=== PATIENT | male | born 1995 | race Two or more races ===

== ENCOUNTER 2022-07-10 08:03 | Day surgery (SDC) | payer MEDICAID ==
[2022-07-06 13:29] LABS: Basophils # (auto) 0.1 10 ^3/uL (0-0.2); Basophils % (auto) 0.7 % (0.0-2.0); Eosinophils # (auto) 0.3 10 ^3/uL (0-0.8); Eosinophils % (auto) 3.3 % (0.0-7.0); Hematocrit 48.9 % (41.0-53.0); Hemoglobin 16.6 g/dL (13.5-17.5); Lymphocytes # (auto) 3.5 10 ^3/uL (0.4-5.4); Mean Corpuscular Hgb Conc. 33.9 g/dL (32.0-36.0); Mean Corpuscular Volume 88.6 fL (80.0-100.0); Monocytes # (auto) 0.5 10 ^3/uL (0-1.3); Monocytes % (auto) 5.3 % (0.0-12.0); Neutrophils # (auto) 5.1 10 ^3/uL (1.6-8.6); Neutrophils % (auto) 53.7 % (37.0-80.0); Nucleated Red Blood Cells % 0.1 %; Red Blood Cells 5.52 10^6/uL (4.5-5.90); Red Cell Distribution Width 13.8 % (11.8-14.3); Urine Bacteria NONE SEEN /hpf (None Seen); Urine Blood Negative /uL (Negative); Urine Specific Gravity 1.021 (1.001-1.035); Urine WBC 1 /hpf (0 - 3); White Blood Cell 9.4 10^3/uL (4.4-10.8)
[2022-07-06 13:33] LABS: Albumin 3.9 g/dL (3.4-5.0); Calcium 8.8 mg/dL (8.5-10.1)
[2022-07-06 13:36] LABS: BUN/Creatinine Ratio 9.7; Bilirubin, Total 0.3 mg/dL (0.2-1.0); Total Protein 7.7 g/dL (6.4-8.2)
[2022-07-06 13:43] LABS: INR 0.97 (0.9-1.15); Partial Thromboplastin Time 30.5 sec (24.6-33.4)
[~2022-07-10] VITALS: Ht 172.7 cm; Wt 115.7 kg
[2022-07-10] MEDS ORDERED: LIDOCAINE 2%HCL (LOCAL ANESTH.) INJ 10ml MDV ONE (09:41)
[2022-07-10] MEDS ORDERED: BUPIVACAINE 0.5% P/F INJ 10 ML VIAL ONE (09:41)
[2022-07-10] MEDS ORDERED: MIDAZOLAM HCL 2MG/2ML 2ml VIAL (1mg/ml) ONE (10:11)
[2022-07-10] MEDS ORDERED: fentaNYL CITRATE 100 MCG/2 ML VL ONE (10:11)
[2022-07-10] MEDS ORDERED: HYDROmorphone HCL 2 MG/ML VL/or syr IV PRN ×2 (11:30)
[2022-07-10] MEDS ORDERED: ONDANSETRON HCL 4 MG/2 ML VIAL IV PRN (11:30)
[2022-07-10] MEDS ORDERED: ONDANSETRON HCL 4 MG/2 ML VIAL ONE (11:45)
[2022-07-10] MEDS ORDERED: PROPOFOL 10 MG/ML 20 ML IV ONE (11:45)
[2022-07-10 12:28] VITALS: BP 156/76
== END 2022-07-10 12:45 | disposition home or self-care (01) ==
LOC: SUR 08:03
PROVIDERS: ATTEND Orthopaedic Surgery
DX: S62.394A Other fracture of fourth metacarpal bone, right hand, initial encounter for closed fracture (principal); X58.XXXA Exposure to other specified factors, initial encounter; Y93.89 Activity, other specified; Y92.89 Other specified places as the place of occurrence of the external cause; Y99.8 Other external cause status; Z20.822 Contact with and (suspected) exposure to COVID-19
CPT/HCPCS: 26615; 36415; 73130; 76000; 80053; 81001; 85025; 85610; 85730; J2001; J2250; J2405; J2704; J3010; J3490; U0003